=== PATIENT | female | born 1985 | race Caucasian/White ===

== ENCOUNTER 2024-03-13 14:08 | Outpatient (CLI) | payer OTHER, SELFPAY | END 2024-03-13 14:09 | disposition home or self-care (01) | LOC: NFLDREF 14:10 | PROVIDERS: Visit Provider Obstetrics & Gynecology | DX: Z13.220 Encounter for screening for lipoid disorders (principal); Z12.4 Encounter for screening for malignant neoplasm of cervix | CPT/HCPCS: 80061; 87624 ==

== ENCOUNTER 2024-04-02 08:05 | Outpatient (CLI) | payer OTHER, SELFPAY ==
--- OUTSIDE RECORDS SUMMARY | 2024-04-02 14:22 | XMS_ITS | Clinical Summary ---
Author Organization [facility] Address [place], [place] [address] Care Team Providers Care Hem Marker Name Role Phone None Primary Care Provider Unavailabl e Allergies Active Allergy Reactions Criticality Noted Date Comments Dog Dander Itching,Rash,Runny Nose 03/16/2020 Doxycycline Hives,Itching,Rash,R u nny Nose,Shortness Of Breath 03/16/2020 Unlisted Allergen (Include Detail In Comments) Hives 03/16/2020 Cold Urticaria Medications No known medications Encounters Date Type Department Care Team Description 03/14/2024 Lab Requisition [facility] [phone] Jodee Jimenez MD from Last 3 Months Family History Medical History Relation Name Comments Other Maternal Grandfather Bypass Relation Name Status Comments Maternal Grandfather Bypass Other Social History Tobacco Use Types Packs/Day Years Used Date Smoking Tobacco: Never Smokeless Tobacco: Never Tobacco Cessation:Counseling Given: Yes Alcohol Use Standard Drinks/Week Comments Yes 0 (1 standard drink = 0.6 oz pur e alcohol) Social Connections Answer Date Recorded Frequency of Communication with Friends and Fami ly Not on file 07/02/2021 Financial Resource Strain Answer Date R ecorded Difficulty of Paying Living Expenses Not on file 07/02/2021 Difficulty of Paying Living Expenses Not on file 07/02/2021 Sex and Gender Information Value Date Recorded Sex Assigned at Not on file Gender Identity Not on file Sexual Orientation Not on file Obstetrics History Last Filed Vital Signs Vital Sign Reading Time Taken Comments Blood Pressure 135/86 04/20/2020 3:44 PM CDT Pulse 117 04/20/2020 3:44 PM CDT Temperature - - Respiratory Rate 18 04/20/2020 3:44 PM CDT Oxygen Saturation 100% 04/20/2020 3:4 4 PM CDT Inhaled Oxygen Concentration - - Weight 73.9 kg (162 lb 14.4 oz) 04/20/2020 3:44 PM CDT Pt weighed with shoes on. Height - - Body Mass Index - - Plan of Treatment Health Maintenance Due Date Last Done Comments Tdap 12/21/1998 Depression screening for age 12+ 1999 HIV for age 15-65 12/21/2002 BMI (ht and wt on same day) for age 18+ 12/21/2005 Hepatitis C screening for ag e 18-79 12/21/2005 Tetanus booster 2007 COVID-19 vaccine series (2023- season) 2024 Influenza for age 9-49 03/02/2024 Pap test for age 21-65 03/13/2027 4, 03/13/2024 Pneumococcal series for age 6-64 Aged Out No longer eligible b ased on patient's age to complete this topic Procedures Procedure Name Priority Date/Time Associated Diagnosis Comments LAB TRACKING EVENT Routine 03/13/2024 2: 00 PM CDT REHABILITATION CONSULTANT THIN PREP PAP SCREEN IMAGED Routine 03/13/2024 2:00 PM CDT HPV HIGH RISK Routine 03/13/2024 2:00 PM CDT from Last 3 Months Results * LAB TRACKING EVENT (03/13/2024 2:00 PM CDT) Other (Other) Client Collect / Unknown 03/13/2024 2:00 PM CDT 03/14/2024 3:56 PM CDT Jodee Jimenez MD LAB BILL O [facility] [address] [place] [address], * REHABILITATION CONSULTANT THIN PREP PAP SCREEN IMAGED (03/13/2024 2:00 PM CDT) Case Report Gynecologic Cytology Report ? Case: [id number] ? Authorizing Provider: ??Jodee Jimenez ?Collected: ? 03/13/2024 1400 ? Kiersten, ? Ordering Location: ? [facility] ?Received: ?03/17/2024 1329 ? First Screen: ?Mujacquelineh, Arlette M ? Rescreen: ?Baccam, Minie ? Specimen: ?REHABILITATION CONSULTANT ThinPrep Vial Screening, Cervical ? 03/27/2024 1:39 PM CDT [facility] INTERPRETATION/ RESULT NEGATIVE FOR INTRAEPITHELIAL LESION OR MALIGNANCY (NIL) (none) 03/27/2024 1:39 PM CDT [facility] IMEN ADEQUACY Satisfactory for evaluation Endocervical component present 03/27/2024 1:39 PM CDT [facility] HPV REQUEST HPV and PAP 03/27/2024 1:39 PM CDT [facility] Date of LMP 03/12/2024 03/27/2024 1:39 PM CDT [facility] Last Pap Date 03/27/2024 1:39 PM CDT [facility] Comment:Unkown Last Pap Result NIL 1:39 PM CDT [facility] Abnormal Pap or [place] Bx in last 5 years Yes 03/27/2024 1:39 PM CDT [facility] Menstrual Status Regular Periods 03/27/2024 1:39 PM CDT [facility] [place] Bx Done Today No 03/27/2024 1:39 PM CDT [facility] Additional Information 03/27/2024 1:39 PM CDT [facility] Comment: Interpreted at [facility], Central Laboratory - [address], [place] [address] Automated Review Successful 03/27/2024 1:39 PM CDT [facility] Comment:Specimen processed s uccessfully by automated water project engineer device, ThinPrep Imaging System, [employer] ANCILLARY TESTING REHABILITATION CONSULTANT HPV Ordered, Please see separate report 03/27/2024 1:39 PM CDT [facility] Note The pap test is a screening technique, not a diagnostic procedure. It is used primarily to screen for squamous cancers and precursor lesions. Published studies have shown that it is subject to both false negative and false positive results. The pap test should not be used as the sole means to diagnose or exclude pre-malignant and malignant lesions. 03/27/2024 1:39 PM CDT [facility] Other (Cervical) 03/13/2024 2:00 PM CDT 03/17/2024 1:29 PM CDT Jodee Jimenez MD PATHOLOGY/ CYTOLOGY Performing Organization Address [facility] Co de Phone Number [facility] [address] [address], * HPV HIGH RISK (03/13/2024 2:00 PM CDT) TYPE 16 Negative Negative 03/21/2024 11:57 AM CDT [facility] TYPE 18 Negative Negative 03/21/2024 11:57 AM CDT [facility] OTHER HIGH RISK TYPES Negative Negative 03/21/2024 11:57 AM CDT [facility] Other (Cervical) 03/13/2024 2:00 PM CDT 03/17/2024 1:29 PM CDT Narrative [facility] - 03/21/2024 11:57 AM CDT HPV types 16, 18, 31, 33, 35, 39, 45, 51, 52, 56, 58, 59, 66 and 68 DNA were undetectable or below the pre-set threshold. Methodology: Mirta Guillermina 4800 HPV Test Jodee Jimenez MD MICROBIOLO GY Performing Organization Address [facility] Co de Phone Number [facility] [address] [place] [address], from Last 3 Months Care Teams Hem Marker Relationship Specialty Start Date End Date None . PCP - General 01/28/20
== END 2024-04-02 08:06 | disposition home or self-care (01) ==
LOC: NFLDREF 14:21
PROVIDERS: Visit Provider Obstetrics & Gynecology
DX: Z13.6 Encounter for screening for cardiovascular disorders (principal)
CPT/HCPCS: 80061